=== PATIENT | male | born 1935 | race Caucasian/White ===

== ENCOUNTER 2017-07-25 06:06 | Day surgery (SDC) | payer MEDICARE, OTHER, SELFPAY ==
[2017-07-03 10:06] VITALS: BP 106/56; PULSE 48; RESP 16; TEMP 36.6; O2SAT 97; BMI 22.3
[2017-07-03 10:43] LABS: Hematocrit 48.5 % (40-54); Hemoglobin 15.6 g/dl (13.0-16.5); Mean Corp Hgb Conc 32.2 g/gl (32-36); Mean Corpuscular Hgb 33.3 pg (27.0-32.0); Mean Corpuscular Volume 103.4 fL (80-94); Platelet Count 166 K/mm3 (150-450); RBC Distribution Width SD 48.6 fl (35.1-43.9); Red Blood Count 4.69 M/mm3 (4.6-6.2); White Blood Count 8.2 K/mm3 (4.4-11.0)
[2017-07-03 10:45] LABS: Scan Indicated on CBC? Y/N NO
[2017-07-03 11:06] LABS: AST(SGOT) 20 U/L (15-37); Alanine Aminotransfer ALT/SGPT 25 U/L (12-78); Albumin, Serum 3.5 g/dL (3.4-5.0); Alkaline Phosphatase 79 U/L (45-117); Anion Gap 4 (5-15); BUN 19 mg/dL (7-18); BUN/Creat Ratio 20.1 RATIO (10-20); Bilirubin, Direct 0.13 mg/dL (0.00-0.30); Calcium,Total 8.8 mg/dL (8.5-10.1); Chloride 107 mmol/L (98-107); Creatinine, Serum 0.95 mg/dL (0.70-1.30); EST Glomerular Filtration Rate 81 mL/min (>60); Est Glom Filt Rate - Afr Amer 98 mL/min (>60); Estimated Creatinine Clearance 59.17 ml/min; Globulin 3.5 g/dL (2.2-4.2); Glucose 75 mg/dL (70-110); Potassium 4.7 mmol/L (3.5-5.1); Sodium Level 140 mmol/L (136-145); Thyroid Stim Hormone (TSH) 0.71 uIU/mL (0.358-3.74)
[2017-07-25 06:46] VITALS: BP 139/49; PULSE 45; RESP 16; TEMP 35.9; O2SAT 100; BMI 22.3
[2017-07-25 06:56] LABS: Prothrombin Time (Protime)PT. 13.1 SECONDS (11.7-14.9)
[2017-07-25 06:57] LABS: Partial Thromboplast Time 27.1 Seconds (24.1-36.2)
[2017-07-25] MEDS: Clindamycin 900 MG/50 ML BAG 75 MG IV (07:32)
--- NOTE | 2017-07-25 07:39 | PCM.DC ---
You will use the following diet at home:: No restrictions Discharge Activity: Return to Normal Activity Call your doctor if your incision/area has: Increased Pain/ Swelling Additional Dressing/Incision Instructions:: remove head dressing in 48 hours. after that, keep incision dry for [address] given mupirocin ointment on the incision twice daily for 2 weeks after surgery. Allergies/Adverse Reactions: Allergies No Known Allergies Allergy (Verified 07/03/17 09:52) Medications to take at Discharge Amiodarone HCl 200 mg PO QHS 07/03/17 Levothyroxine [Synthroid] 100 mcg PO DAILY 07/03/17 Tamsulosin HCl [Flomax] 0.4 mg PO QHS 07/03/17 Hydrocodone/Acetaminophen [Trona 5-325 Tablet] 1 ea PO Q6H #10 tab 07/25/17 Sulfamethoxazole/Trimethoprim [Bactrim 400-80 mg Tablet] 1 ea PO BID #10 tab 07/25/17 The following prescriptions were given: Sulfamethoxazole/Trimethoprim [Bactrim 400-80 mg Tablet] 1 ea PO BID #10 tab Hydrocodone/Acetaminophen [Tron[place] 5-325 Tablet] 1 ea PO Q6H #10 tab Primary Care Physician: Rashmi Bower,Out of [Primary Care Provider] - Please Follow Up With: Dick Hernández MD When: 1 week - call to make appt
--- NOTE | 2017-07-25 07:41 | PCM.OPRPT ---
Problem List (1) Sensorineural hearing loss (SNHL) of both ears Status: Chronic Report of Operation Date of Procedure: 07/25/17 Pre-Operative Diagnosis: sensorineural hearing loss, right and left Post-Operative Diagnosis: sensorineural hearing loss, right and left Surgery/Procedure Performed:: 1. cochlear implant, left. 2. temporalis fascia graft Type of Anesthesia:: General Drains: none Estimated Blood Loss (mL): 5cc Description of Procedure: on the day of the procedure, after appropriate informed consent was obtained, the patient was brought to the operating room and placed in supine position on the operating room table. he was placed under general endotracheal anesthesia by the anesthesiologist. the endotracheal tube was secured, the eyes were taped. facial nerve electrodes were placed on the left face. a postauricular incision was demarcated with a 3cm superior limb. lidocaine/epinephrine was injected subcutaneously. the left ear was prepped and draped in sterile fashion. a postauricular incision was made with a #15 blade. the periosteum was exposed as was the temporalis fascia. a small temporalis fascia graft was taken with an iris scizzor. the graft was saved. a T-shaped incision was made in the periosteum with the cut function of the bovie. the periosteum was swept away with a jordonpert periosteal elevator. the external auditory canal and temporal line were exposed. a cortical mastoidectomy was performed with a cutting rylee. the tegmen mastoideum and sinodural angle were drilled, and the external auditory canal was thinned. the antrum was entered and the lateral canal and incus were visualized. the facial nerve was skeletonized with copious irrigation and a rocco rylee. this was stimulated for confirmation. the chorda tympani was skeletonized and the facial recess was opened. the round window niche was readily seen and the bony overhang was drilled away. the cavity was irrigated with saline. the cochlear implant well was drilled and a channel was created to the mastoid cavity. a tight postauricular pocket was created under the periosteum. the [id number] implant was placed in the pocket snugly. a cruciate incision was made in the round window membrane. the ground electrode was placed in the zygomatic root. the implant was slowly inserted using the jewler and insertion forceps. the advance off stylet function was used. this was advanced to the second ring on the electrode. the electrode was secured at its entrance to the mastoid cavity with bone wax. the periosteum and postauricular incision were closed with 4-0 vicryl and 3-0 nylon. nerve response telemetry was completed with normal results. a mastoid dressing was placed. the patient was awoken from anesthesia and transferring to the PACU in stable condition. Grafts/Implants Used: cochlear implant - Admit VTE Documentation VTE Mechan Device Prophylaxis: SCD's VTE Pharm Prophylaxis ordered?: No Reason prophylaxis not ordered:: Treatment Not Indicated
[2017-07-25] MEDS: Mupirocin Ointment 22gm Tube 1 APPLIC (10:07)
[2017-07-25 10:27] VITALS: BP 124/65; BP 139/49; PULSE 54; RESP 16; TEMP 36.6; O2SAT 95
[2017-07-25 10:45] VITALS: BP 136/65; BP 139/49; PULSE 52; RESP 16; O2SAT 98
[2017-07-25 11:00] VITALS: BP 139/49; BP 140/65; PULSE 52; RESP 16; O2SAT 96
[2017-07-25 11:14] VITALS: BP 137/62; BP 139/49; PULSE 52; RESP 16; TEMP 36.2; O2SAT 94
[2017-07-25 12:19] VITALS: BP 139/49
== END 2017-07-25 12:21 | disposition home or self-care (01) ==
LOC: SDC 06:06 → AC 06:07
PROVIDERS: Anesthesiology; Visit Provider Otolaryngology
PROC: (CPT 69930; principal; 2017-07-25 07:00)
DX: H90.3 Sensorineural hearing loss, bilateral (principal); E07.9 Disorder of thyroid, unspecified; I47.1 Supraventricular tachycardia; Z79.899 Other long term (current) drug therapy; Z87.442 Personal history of urinary calculi; Z85.46 Personal history of malignant neoplasm of prostate; Z98.890 Other specified postprocedural states
CPT/HCPCS: 69930; 36415; 85610; 85730; J7120; J2405; J3490